=== PATIENT | female | born 1965 | race Caucasian/White ===

== ENCOUNTER 2022-11-29 13:29 | Emergency (ER) | payer BC, MEDICAID ==
[~2022-11-29] VITALS: Ht 172.7 cm; Wt 114.9 kg
[2022-11-29 15:06] VITALS: BP 143/70
[2022-11-29] MEDS ORDERED: ACET1CAP14 PO (15:42)
[2022-11-29] MEDS ORDERED: LIDOCAINE VISCOUS 2% 15ML UD PO ONE (15:45)
== END 2022-11-29 16:07 | disposition home or self-care (01) ==
LOC: ER 13:29
DX: R09.89 Other specified symptoms and signs involving the circulatory and respiratory systems (principal); Z88.1 Allergy status to other antibiotic agents
CPT/HCPCS: 70490